=== PATIENT | male | born 1945 | race Caucasian/White ===

== ENCOUNTER 2022-09-30 18:30 | Emergency (ER) | payer OTHER ==
[~2022-09-30] VITALS: Ht 185.4 cm; Wt 81.6 kg
[2022-09-30 18:30] VITALS: BP_SYST 207; PULSE 65; RESP 18; TEMP 97; O2SAT 96
[2022-09-30] MEDS ORDERED: NS 500 ML IV ONE (18:45)
[2022-09-30 19:34] LABS: BASOPHILS % (AUTO) 0.3 % (0.0-2.0); HEMATOCRIT 34.2 % (36-54); HEMOGLOBIN 11.2 g/dL (14.0-18.0); LYMPHOCYTES # (AUTO) 0.4 K/uL (1.0-5.5); LYMPHOCYTES % (AUTO) 7.2 % (20.5-51.5); MEAN CORPUSCULAR HEMOGLOBIN 31 pg (27-31); MEAN CORPUSCULAR HGB CONC 33 % (32-36); MEAN CORPUSCULAR VOLUME 95 fL (79.0-98.0); MONOCYTES # (AUTO) 0.5 K/uL (0.0-1.0); NEUTROPHILS % (AUTO) 81.5 % (40.0-70.0); PLATELET COUNT (AUTO) 277 K/uL (130-430); RED BLOOD CELL COUNT(AUTO) 3.59 MIL/uL (4.2-6.2); RED CELL DISTRIBUTION WIDTH 23.4 % (9.0-15.0); WHITE BLOOD COUNT (AUTO) 4.9 K/uL (4.8-10.8)
[2022-09-30 19:37] LABS: INR 1.2 (0.80-1.20); PROTHROMBIN TIME 12.1 SECS (9.5-12.5)
[2022-09-30 19:45] LABS: ALBUMIN 2.5 g/dL (3.4-4.8); ANION GAP 9 (5-15); ASPARTATE AMINOTRANSFERASE 27 U/L (10-37); CALCIUM 7.5 mg/dL (8.4-11.0); CHLORIDE 102 mmol/L (98-107); CREATININE 1.55 mg/dL (0.55-1.30); GLUCOSE 110 mg/dL (74-106); LIPASE 49 U/L (73-393); UREA NITROGEN, BLOOD 25 mg/dL (8-21)
[2022-09-30] MEDS: KCL 40 mEq in 100 mL (PREMIX) 100 ML IV ONE ×2 (20:00→21:25)
[2022-09-30 20:15] LABS: ALANINE AMINOTRANSFERASE < 5 U/L (12-78)
[2022-09-30] MEDS: LABETALOL HCL 20 MG/4 ML CARTRIDGE IVP ONE ×2 (21:24→21:33)
[2022-09-30] MEDS ORDERED: KCL 20 mEq in 100 mL (PREMIX) 0 ML IV ONE (21:25)
[2022-09-30 21:44] LABS: BILIRUBIN,URINE NEGATIVE (NEGATIVE); BLOOD, URINE NEGATIVE (NEGATIVE); CLARITY/URINE CLEAR (CLEAR); COLOR,URINE YELLOW (YELLOW); GLUCOSE,URINE NEGATIVE (NEGATIVE); KETONES,URINE NEGATIVE (NEGATIVE); LEUKOCYTE ESTERASE ,URINE NEGATIVE (NEGATIVE); NITRITE, URINE NEGATIVE (NEGATIVE); PROTEIN URINE 2+ (NEGATIVE); UROBILINOGEN,URINE 0.2 (0.2-1.0)
[2022-09-30 22:09] LABS: BACTERIA,URINE None Seen /HPF (None Seen); HYALINE CASTS, URINE 0-10 /LPF (None Seen); MUCUS,URINE None Seen /LPF (None Seen); WBC,URINE 0-3 /HPF (0-3)
[2022-09-30] MEDS ORDERED: HYDROmorphone 1 MG/ML INJ. CARTRIDGE IVP ONE (23:30)
[2022-10-01] MEDS ORDERED: LORazepam 2 MG/ML VIAL IVP ONE (10:00)
[2022-10-01 14:18] VITALS: BP_SYST 176; PULSE 85; RESP 11; TEMP 97.6; O2SAT 96
== END 2022-10-01 14:21 | disposition hospice, inpatient (51) ==
LOC: SED 18:30
DX: R41.82 Altered mental status, unspecified (principal); G20 Parkinson's disease; R53.1 Weakness; N28.9 Disorder of kidney and ureter, unspecified; I11.0 Hypertensive heart disease with heart failure; I50.9 Heart failure, unspecified; Z79.899 Other long term (current) drug therapy
CPT/HCPCS: 99291; 96374; 70450; 96361; 80053; 81000; 83690; 83735; 85025; 85610; 36415; 76376; 83605; 96375; J1170; J7040; J7030; J2060; J3480